=== PATIENT | male | born 1990 | race Hispanic/Latino ===

== ENCOUNTER 2023-08-08 12:10 | Emergency (ER) | payer SELFPAY ==
[2023-08-08 12:40] VITALS: BP 133/70; PULSE 76; RESP 20; TEMP 36.9; O2SAT 98
--- NOTE | 2023-08-08 13:06 | ED.MALEGU ---
HPI - Male Genitourinary General Chief complaint: Urogenital-Male Stated complaint: Male Problems Time Seen by Provider: 08/08/23 13:07 Source: patient and RN notes reviewed Mode of arrival: ambulatory Limitations: no limitations History of Present Illness HPI Narrative: 33-year-old male presented for complaints of pimple to the right groin worsening over the past 2 weeks. He endorses redness, swelling, and pain to the site. Painful when walking. He has not taken anything for pain. He has only applied hot water to the site for treatment. Denies History of STDs, DM, or urinary symptoms. Denies drainage to the site, abdominal pain, n/v/d/f/c. Review of Systems Review of Systems: CONSTITUTIONAL: Denies body aches, fever, chills, or sweats. CARDIOVASCULAR: Denies chest pain, palpitations, or edema. RESPIRATORY: Denies cough or dyspnea. GASTROINTESTINAL: Denies abdominal pain, nausea, vomiting, or diarrhea. GENITOURINARY: Denies dysuria, frequency, urgency, hematuria, flank pain SKIN: Reports right groin redness/sweling Denies rash, itching MUSCULOSKELETAL: Denies back pain or myalgia. [facility] Past Medical History Medical History (Updated 08/08/23 @ 13:29 by Saritha Anguiano APRN) No pertinent past medical history Social History Social History (Updated 08/08/23 @ 13:23 by Saritha Anguiano APRN) Smoking packs per day: 0.5 Smoking cigarettes per day: 10.0 Smoking status: Current every day smoker Comments At time of signature, I have reviewed and agree with nursing past medical, surgical, social and family history unless otherwise noted. Please see nursing chart for further information. There is no relevant family history pertinent to the presenting complaint Exam Narrative: GENERAL: Well-appearing ENT: Mucous membranes pink and moist. NECK: Normal AROM. Supple. CHEST: No respiratory distress. Clear to auscultation. HEART: Regular rate and rhythm. ABDOMEN: Soft, nontender, nondistended, normal active bowel sounds. No CVA tenderness : right groin with approx 5cm diameter abscess, fluctuant center of induration, tenderness, no active drainage. SKIN: Warm, dry, no rash. NEURO: No focal deficits. Alert and oriented x3. Gait steady. PSYCH: Normal affect. : Male genitals images: 1. area of abscess Course Course Emergency Course: Patient is aware of diagnosis, understands and agrees to treatment plan. Anticipatory guidance given. Patient agrees to follow-up as directed and is aware of reasons to seek care at the emergency department. Portions of this record may have been created with voice recognition software Level of Care: Express Care Visit Vital Signs Vital signs: Vital Signs Oxygen Delivery Room Air 08/08/23 12:20 Temperature 98.4 F 08/08/23 12:40 Pulse Rate 76 08/08/23 12:40 Respiratory Rate 20 08/08/23 12:40 Blood Pressure 133/70 08/08/23 12:40 Pulse Oximetry 98 08/08/23 12:40 Oxygen Delivery Room Air 08/08/23 12:40 Reviewed Transfer Transfered to: [facility] Transportation: Other ( Private vehicle) Transfer rationale: Pt is agreeable to transfer. Requests transfer to [facility] via private vehicle. Risks of transportation reviewed with pt including injury, worsening of condition and . v/u. Uncle will be driving pt; Report called to hospital, spoke with Elvira JANSEN, accepting physician. Pt is in stable condition at time of transfer. Advised to remain NPO and go directly to the hospital. MDM - Male Genitourinary MDM Narrative Medical decision making narrative: Presented for right groin abscess, given location pt is advised ER transfer. patient is primarily Maltese-speaking, plater supervisor services utilized. PCN allergy. Differential Diagnosis Differential diagnosis: Likely urinary tract infection, urethritis, genital herpes simplex and other (abscess, cellulitis, folliculitis, morgan's gangrene) Discharge Plan
[2023-08-08 13:30] VITALS: BP 133/70; PULSE 76; RESP 20; TEMP 36.9; O2SAT 98
== END 2023-08-08 13:34 | disposition short-term general hospital (02) ==
PROVIDERS: Emergency Provider Nurse Practitioner Family
DX: N48.21 Abscess of corpus cavernosum and penis (principal); F17.210 Nicotine dependence, cigarettes, uncomplicated
CPT/HCPCS: 99203; G0463

== ENCOUNTER 2023-08-08 13:38 | Emergency (ER) | payer SELFPAY ==
--- NOTE | ~2023-08-08 | US_ITS ---
EXAMINATION: US scrotum doppler DATE: 08/08/2023 18:20 INDICATION: Right scrotal swelling. TECHNIQUE: Grayscale and Doppler ultrasound images of the testes were obtained. COMPARISON: None. FINDINGS: The right testis measures 4.2 x 2.4 x 2.9 cm. The left testis measures 4.0 x 2.2 x 2.5 cm. There is normal vascular flow to both testes. The right epididymis is normal with normal vascular oralia w. The left epididymis is normal with normal vascular flow. There is no varicocele or hydrocele. In t he right side of the scrotum, there is a 3.0 x 2.8 x 1.8 cm mass of mixed echogenicity. IMPRESSION: 1. Mass in the right side of the scrotum, most likely inflammation or infection. Reviewed, dictated and finalized at location E. [facility] A[employer]AIRS MANAGER IMPRESSION: 1. Mass in the right side of the scrotum, most likely inflammation or infectio n.
[2023-08-08 13:58] VITALS: BP 136/61; PULSE 74; RESP 16; TEMP 36.4; O2SAT 99
--- NOTE | 2023-08-08 16:49 | ED.SKABFB ---
HPI - Skin/Abscess/Foreign Bdy General Chief complaint: Skin/Abscess/Foreign Body <BI Flores Last Filed: 08/08/23 19:33> Stated complaint: groin abscess <BI Flores Last Filed: 08/08/23 19:33> Time Seen by Provider: 08/08/23 15:51 <BI Flores Last Filed: 08/08/23 19:33> Source: patient <BI Flores Last Filed: 08/08/23 19:33> Mode of arrival: ambulatory <BI Flores Last Filed: 08/08/23 19:33> Limitations: no limitations <Elvira Maloney PA-C - Last Filed: 08/08/23 19:33> History of Present Illness HPI narrative: This is a 33 year old male that presents to the ER for an abscess to his scrotum present over the last 2 weeks. Reports redness and swelling to the right side of his scrotum. Denies fevers or drainage. <Elvira Maloney PA-C - Last Filed: 08/08/23 19:33> Related Data Allergies/Adverse reactions: Allergies Allergy/AdvReac Type Severity Reaction Status Date / Time Penicillins Allergy Rash Verified 08/08/23 16:15 <BI Flores Last Filed: 08/08/23 19:33> Review of Systems Review of Systems: CONSTITUTIONAL: Denies fever SKIN: Reports redness and swelling <BI Flores Last Filed: 08/08/23 19:33> All systems reviewed & are unremarkable except as noted in HPI and below <BI Flores Last Filed: 08/08/23 19:33> [facility] Past Medical History Medical History: Medical History (Updated 08/09/23 @ 00:01 by Brielle Ansari) No pertinent past medical history <BI Flores Last Filed: 08/08/23 19:33> Social History Social History: Social History (Updated 08/08/23 @ 13:23 by Saritha Anguiano, GRACIELA) Smoking packs per day: 0.5 Smoking cigarettes per day: 10.0 Smoking status: Current every day smoker <Elvira Maloney PA-C - Last Filed: 08/08/23 19:33> Exam Narrative: GENERAL: Well-appearing, well-nourished, and in no acute distress. HEAD: Normocephalic, atraumatic. EYES: EOMI. CHEST: No respiratory distress. HEART: Regular rate EXTREMITIES: Normal range of motion. No edema. SKIN: Warm, dry, no rash. NEURO: No focal deficits. Alert and oriented x3. PSYCH: Normal mood and affect MALE GENITAL: Right scrotum with 3cm area of erythema, edema with central fluctuance <Elvira Maloney PA-C - Last Filed: 08/08/23 19:33> Course Course Emergency Course: Patient updated on his workup and educated on wound care. Agrees with plan of care <BI Flores Last Filed: 08/08/23 19:33> [employer]PORATION SECRETARY/PA Physician Supervision This visit was performed by both a physician and an APC. I performed all aspects of the MDM as documented. <Lei Sands MD - Last Filed: 08/11/23 18:11> Vital Signs Vital signs: Vital Signs Temperature 97.6 F 08/08/23 13:58 Pulse Rate 74 08/08/23 13:58 Respiratory Rate 16 08/08/23 13:58 Blood Pressure 136/61 08/08/23 13:58 Pulse Oximetry 99 08/08/23 13:58 Temperature 98 F 08/08/23 19:18 Pulse Rate 77 08/08/23 19:18 Respiratory Rate 16 08/08/23 19:18 Blood Pressure 132/71 08/08/23 19:18 Pulse Oximetry 100 08/08/23 19:18 <Elvira Maloney PA-C - Last Filed: 08/08/23 19:33> Vital Signs Temperature 97.6 F 08/08/23 13:58 Pulse Rate 74 08/08/23 13:58 Respiratory Rate 16 08/08/23 13:58 Blood Pressure 136/61 08/08/23 13:58 Pulse Oximetry 99 08/08/23 13:58 Temperature 98 F 08/08/23 19:18 Pulse Rate 77 08/08/23 19:18 Respiratory Rate 16 08/08/23 19:18 Blood Pressure 132/71 08/08/23 19:18 Pulse Oximetry 100 08/08/23 19:18 <Lei Sands MD - Last Filed: 08/11/23 18:11> Procedures Abscess I/D scrotum: Date of Incision: 08/08/23 <Elvira Maloney PA-C - Last Filed: 08/08/23 19:33> Time of Incision: 19:00 <Elvira Maloney PA-C - Last Filed: 08/08/23 19:33> Side (if applicable
[2023-08-08 17:05] LABS: Basophils Percent Auto 0.2 % (0.2-1.2); Eosinophils Absolute Auto 0.1 K/mm3 (0-0.3); Hematocrit 50.1 % (42.0-52.0); Hemoglobin 16.6 g/dL (14.0-18.0); Immature Granulocyte Absolute 0.06 K/mm3 (0.00-0.031); Immature Granulocyte Percent A 0.5 % (0-0.5); Lymphocytes Absolute Auto 1.39 K/mm3 (0.9-3.2); Lymphocytes Percent Auto 11.4 % (18.3-44.2); Mean Corpuscular HGB Conc 33.1 g/dl (32-36); Mean Corpuscular Hemoglobin 30.3 pg (26-34); Mean Corpuscular Volume 91.4 fl (80-100); Mean Platelet Volume 10.9 fl (7.4-10.4); Monocytes Absolute Auto 0.7 K/mm3 (0.1-0.6); Monocytes Percent Auto 5.6 % (2.6-8.5); Neutrophils Absolute Auto 9.9 K/mm3 (1.3-6.7); Neutrophils Percent Auto 81.3 % (45.5-73.1); Platelet Count Result 202 k/mm3 (150-375); Red Blood Count 5.48 M/mm3 (4.6-6.20); Red Cell Distribution Width 12.4 % (11.5-14.5); White Blood Count 12.2 K/mm3 (4.5-10.0)
[2023-08-08 17:05] LABS: Appearance Urine Clear (Clear); Bilirubin Urine Negative (Negative); Blood Urine Negative (Negative); Color Urine Yellow (Yellow); Glucose Urine UA Negative (Negative); Ketones Urine Trace mg/dL (Negative); Leukocyte Esterase Ur Negative LEU/UL (Negative); Nitrate Urine Negative (Negative); Protein Urine Negative (Negative); Specific Grav Ur 1.034 (1.001-1.035); Urobilinogen Urine 0.2 mg/dL (<2.0); pH Urine 5.5 (5.0-9.0)
[2023-08-08 17:10] LABS: Add Urine Microscopic? NO
[2023-08-08 17:17] LABS: Anion Gap 10 mmol/L (8-16); Blood Urea Nitrogen 21 mg/dL (9-20); CRP 3.1 mg/dL (<1.0); Calcium 9.4 mg/dL (8.4-10.2); Carbon Dioxide 25 mmol/L (22-30); Chloride 104 mmol/L (98-107); Estimated CRCL calculation 102 ml/min; Estimated Glomerular Filt Rate > 60; Glucose 88 mg/dL (65-110); Sodium 139 mmol/L (137-145)
[2023-08-08 17:37] LABS: Erythrocyte Sedimentation Rate 1 mm/hr (0-20)
[2023-08-08 19:18] VITALS: BP 132/71; PULSE 77; RESP 16; TEMP 36.6; O2SAT 100
== END 2023-08-08 19:36 | disposition home or self-care (01) ==
PROVIDERS: Emergency Provider Physician Assistant
DX: N49.2 Inflammatory disorders of scrotum (principal); F17.210 Nicotine dependence, cigarettes, uncomplicated
CPT/HCPCS: 36415; 54700; 76870; 80048; 81003; 85025; 85652; 86140; 93976; 99284